=== PATIENT | female | born 1985 | race Caucasian/White ===

== ENCOUNTER 2019-02-13 08:00 | Inpatient (IN) | payer OTHER ==
[2019-02-13] MEDS ORDERED: Buffered Lidocaine 1% SYRIN* 1 ML/SYRINGE INTRADERM ONE (08:54)
[2019-02-13] MEDS ORDERED: Lactated Ringers 1000 ML Bag* 1,000 ML IV ONE (08:54)
[2019-02-13] MEDS ORDERED: Lactated Ringers 1000 ML Bag* 1,000 ML IV SCH (09:00)
[2019-02-13] MEDS: Dinoprostone* 10 MG VAG.SUPP VAGINAL ONE ×2 (09:21→09:22)
--- NOTE | 2019-02-13 09:26 | HP ---
General Information - Reason for Visit induction 39 weeks - General Information Maternal Age: 33 Grav: 1 Para: 0 SAB: 0 IEA: 0 Estimated Due Date: 02/18/19 Determined By: Early Ultrasound Maternal Blood Type and Rh: B Positive - Results this Serology/RPR Result: Non-Reactive Rubella Result: Immune HBsAg Result: Negative HIV Result: Negative GBS Culture Result: Negative Past Medical History Delivery History: See Records Pertinent Past Medical History: See Records Pertinent Past Surgical History: See Records Pertinent Family History: See Records - Antepartal Records Antepartal Records: Reviewed, Complicated by: - A2 DM/ obesity Review of Systems Constitutional: Comfortable CV Complaint: No Respiratory: Shortness of Breath: No Gastrointestinal: No Nausea/Vomiting Genitourinary: No Dysuria, No Bleeding, No Leaking Fluid Musculoskeletal: No Complaint Neurological: No Headache Movement: Normal Exam Vital Signs 02/13/19 08:15 Temperature 98.7 F Pulse Rate 82 Respiratory 20 Rate Blood Pressure 135/67 (mmHg) O2 Sat by Pulse 99 Oximetry Lab Values - Entire Visit: Laboratory Tests 02/13/19 08:57 POC Glucose (mg/dL) 81 - Measurements Height: 5 ft 6.5 in Weight: 272 lb Weight in lbs: 272.660207 Body Mass Index (BMI): 43.2 Pre- Weight: 272 lb Weight Gained This : 0 lbs and 0 ozs - Exam Breast: Breast Exam Deferred CVA: No CVA Tenderness Extremities: No Edema Heart: Normal Rhythm/Heart Sounds HEENT: No Significant Findings Lungs: Clear Bilaterally Rectal: Rectal Exam Deferred Reflexes: DTR 2+ Thyroid: No Thyromegaly - Abdominal Exam Abdomen Exam: Non-Tender - Ultrasound/Biophysical Profile Ultrasound Status: Not Done Targeted Exam Findings Cervical Exam: Fingertip Effacement: Thick Station: -3 Presenting Part: Vertex Membrane Status: Intact EFM Findings - External Monitor Findings Baseline Heart Rate: 140 External Monitor Findings: Accelerations Present, No Pattern of Variable or Late Decelerations, Variability Moderate Contractions: None Assessment/Plan - Obstetrical Risk Factors Obstetrical Risk Factors: Obesity, Gestational Diabetes - Plan Plan: Admit - Anticipate Vaginal Delivery
[2019-02-14] MEDS ORDERED: Misoprostol TAB* 100 MCG VAGINAL ONE (06:26)
[2019-02-14] MEDS ORDERED: Misoprostol TAB* 100 MCG ONE (06:29)
--- NOTE | 2019-02-14 10:33 | PN ---
Progress Note - Progress Note Date of Service: 02/14/19 Note: 33 yo at 39 weeks with gestational diabetes currently diet controlled . She was on insulin earlier in . pt being induced at term for gestational diabetes. She has had a cervidil and a misoprostol . She was closed in am yesterday . Now she is 1 cm/ 50 % / -2 station . discussed options for induction. pt would like to try pitocin since she has not responded particularly well to cervidil or cytotec.
[2019-02-14] MEDS: Oxytocin in LR* 20 UNITS/1,000 ML BAG IVPB SCH (10:50)
[2019-02-14 11:08] LABS: ABS Eosinophils 0.1 10^3/ul (0-0.6); ABS Lymphocytes 1.3 10^3/ul (1.0-4.8); ABS Monocytes 0.4 10^3/ul (0-0.8); ABS Neutrophils 6.3 10^3/ul (1.5-7.7); Eosinophil % 1.4 %; Hematocrit 36 % (35-47); Hemoglobin 12.2 g/dL (12.0-16.0); Lymphocyte % 15.3 %; Mean Corpuscular HGB Conc 34 g/dL (31-36); Mean Corpuscular Hemoglobin 31 pg (27-31); Mean Corpuscular Volume 92 fL (80-97); Mean Platelet Volume 11.2 fL (7.4-10.4); Platelet Count 179 10^3/uL (150-450); Red Cell Distribution Width 13 % (10-15); White Blood Count 8.2 10^3/uL (3.5-10.8)
[2019-02-14] MEDS ORDERED: OBEPIDURAL* 250 ML EPIDURAL ONE (12:30)
[2019-02-14] MEDS ORDERED: Bupivacaine 0.25% SDV PF* 10 ML VIAL INJ ONE (12:31)
[2019-02-14] MEDS ORDERED: Sodium Citrate/Citric Acid* 15 ML UDC PO PRN (12:54)
[2019-02-14] MEDS ORDERED: Phenylephrine 40 MCG/ML SYRINGE IV PUSH PRN (12:54)
[2019-02-14] MEDS ORDERED: Famotidine TAB* 20 MG PO PRN (12:54)
[2019-02-14] MEDS ORDERED: EPHEDrine (Pressors)* 50 MG/ML VIAL IV PUSH PRN (12:54)
[2019-02-14] MEDS ORDERED: Lactated Ringers 1000 ML Bag* 1,000 ML IV ONE (12:54)
[2019-02-14] MEDS ORDERED: Lactated Ringers 1000 ML Bag* 1,000 ML IV SCH (13:00)
[2019-02-14] MEDS ORDERED: OBEPIDURAL* 250 ML EPIDURAL SCH (13:00)
[2019-02-15] MEDS: Oxytocin in LR* 20 UNITS/1,000 ML BAG IVPB SCH (00:23)
[2019-02-15] MEDS ORDERED: Witch Hazel PAD* JAR TOPICAL PRN (00:56)
[2019-02-15] MEDS ORDERED: Glycerin ADULT SUPP PR PRN (00:56)
[2019-02-15] MEDS ORDERED: Acetaminophen TAB* 325 MG PO PRN (00:56)
[2019-02-15] MEDS ORDERED: Dibucaine 1% 28.35 GM TUBE PR PRN (00:56)
[2019-02-15] MEDS ORDERED: Lactated Ringers 1000 ML Bag* 1,000 ML IV SCH (01:00)
[2019-02-15] MEDS ORDERED: Oxytocin in LR* 20 UNITS/1,000 ML BAG IVPB SCH (01:00)
[2019-02-15] MEDS ORDERED: Lidocaine 1% INJ* 10 MG/ML 30 ML SDV ONE (02:26)
--- NOTE | 2019-02-15 06:38 | PROCNOTE ---
[facility] OB: Delivery Note - Delivery A Date of : 02/15/19 Time of : 00:12 Sex: Male Weight at : 8 lb 2 oz Score 1 Minute: 8 Score 5 Minutes: 9 Gestational Age in Weeks and Days at Delivery: 39 Weeks and 4 Days Did Patient attempt ?: N/A, No Previous Amniotic Fluid: Clear Estimated Blood Loss: 300 Anesthesia/Analgesia: CEI for Labor Delivered By: Carlos Alcaraz - Nursery Level of Nursery: Regular/Bedside - Perineum Perineal Injury: Vaginal Laceration, 2nd Degree - right sulcus tear 5 cm Perineal Injury Comment: right vaginal sulcus tear Perineal Repair: By Delivering Practioner - Events Delivery Events of Note: Pitocin During Labor, Pitocin Only After Delivery, Tocolytics Given in Past 24 Hours Delivery Events of Note Comment: pushed for 2 hrs with intermitent deep variable contractions/ pt in left and right lateral recumbent / O2/ iv fluids . good recovery
[2019-02-15] MEDS ORDERED: Simethicone TAB* 80 MG TAB.CHEW PO SCH (08:30)
[2019-02-15] MEDS: Docusate CAP* 100 MG PO SCH ×2 (11:25→14:37)
[2019-02-15] MEDS: Ibuprofen TAB* 600 MG PO PRN (14:37)
[2019-02-16] MEDS: Ibuprofen TAB* 600 MG PO PRN ×3 (03:16→19:57)
[2019-02-16] MEDS: Docusate CAP* 100 MG PO SCH ×4 (03:17→19:57)
[2019-02-16 07:10] LABS: ABS Basophils 0.1 10^3/ul (0-0.2); ABS Eosinophils 0.2 10^3/ul (0-0.6); ABS Monocytes 0.6 10^3/ul (0-0.8); ABS Neutrophils 9.6 10^3/ul (1.5-7.7); Eosinophil % 1.8 %; Hematocrit 35 % (35-47); Lymphocyte % 15.8 %; Mean Corpuscular HGB Conc 35 g/dL (31-36); Mean Corpuscular Hemoglobin 32 pg (27-31); Mean Corpuscular Volume 92 fL (80-97); Mean Platelet Volume 10.9 fL (7.4-10.4); Platelet Count 186 10^3/uL (150-450); Red Blood Count 3.77 10^6 /uL (3.70-4.87); Red Cell Distribution Width 13 % (10-15); White Blood Count 12.5 10^3/uL (3.5-10.8)
[2019-02-16] MEDS ORDERED: Ferrous Gluconate TAB* 324 MG TAB PO SCH (09:00)
[2019-02-17] MEDS: Ibuprofen TAB* 600 MG PO PRN (10:35)
[2019-02-17] MEDS: Docusate CAP* 100 MG PO SCH (10:35)
[2019-02-17 11:00] VITALS: BP 132/62
== END 2019-02-17 14:00 | disposition home or self-care (01) | DRG 807 ==
LOC: MCHOBOUT 08:00 → MCHOB 08:53
PROVIDERS: ADMIT Obstetrics & Gynecology; ATTEND Obstetrics & Gynecology
PROC: 10E0XZZ Delivery of Products of Conception, External Approach (ICD-10-PCS; principal; 2019-02-15)
PROC: 0KQM0ZZ Repair Perineum Muscle, Open Approach (ICD-10-PCS; 2019-02-15)
PROC: 3E0P7VZ Introduction of Hormone into Female Reproductive, Via Natural or Artificial Opening (ICD-10-PCS; 2019-02-15)
PROC: 4A1HXCZ Monitoring of Products of Conception, Cardiac Rate, External Approach (ICD-10-PCS; 2019-02-15)
PROC: 3E033VJ Introduction of Other Hormone into Peripheral Vein, Percutaneous Approach (ICD-10-PCS; 2019-02-15)
PROC: 0UQGXZZ Repair Vagina, External Approach (ICD-10-PCS; 2019-02-15)
DX: O24.420 Gestational diabetes mellitus in childbirth, diet controlled (principal); Z37.0 Single live birth; O70.1 Second degree perineal laceration during delivery; O99.214 Obesity complicating childbirth; Z3A.39 39 weeks gestation of pregnancy; O69.82X0 Labor and delivery complicated by other cord entanglement, without compression, not applicable or unspecified
CPT/HCPCS: 36415; 85025; 86850; 86900; 86901; A9270-GY; J3490; S0191

== ENCOUNTER 2019-06-27 14:44 | Emergency (ER) | payer OTHER ==
--- OUTSIDE RECORDS SUMMARY | 2019-06-27 15:12 | XMS REPORT | Summary of Care ---
:1985 Author Organization [facility] Address [address] [place] [address] Care Team Providers Name Role Phone Bernice Locketth Primary Care Provider Reason for Visit Reason Comments Urinary Frequency w/ burning for 5 days. back pain and nausea on thursday. also states vomited today Encounter Details Date Type Department Care Team Description 06/27/2019 Office Visit [facility] Dexter Dewittia, Dysuria (Primary Dx) [address] [place] [address] [phone] [place] [address] [phone] Allergies No Known Allergiesdocumented as of this encounter (statuses as of 06/27/2019) Medications Medication Sig Dispensed Refills Start Date End Date Status OMEPRAZOLE PO Take by mouth 0 Active DAILY. metFORMIN TAKE 1 TABLET 60 Tab 2 12/21/2017 06/27/2019 Discontinued (GLUCOPHAGE) 500 BY MOUTH TWICE MG Oral DAILY TabIndications: PCOS (polycystic ovarian syndrome) documented as of this encounter (statuses as of 06/27/2019) Active Problems Problem Noted Date PCOS (polycystic ovarian syndrome) 09/04/2014 documented as of this encounter (statuses as of 06/27/2019) Social History Tobacco Use Types Packs/Day Years Used Date Never Smoker Smokeless Tobacco: Never Used Alcohol Use Drinks/Week oz/Week Comments No Sex Assigned at Date Recorded Not on file Job Start Date Occupation Industry Not on file Not on file Not on file Travel History Travel Start Travel End No recent travel history available. documented as of this encounter Last Filed Vital Signs Vital Sign Reading Time Taken Comments Blood Pressure 132/78 06/27/2019 2:06 PM EST Pulse 103 06/27/2019 2:06 PM EST Temperature 38.1 06/27/2019 2:06 PM C (100.6 EST F) Respiratory Rate - - Oxygen Saturation 98% 06/27/2019 2:06 PM EST Inhaled Oxygen Concentration - - Weight 114.3 kg (252 lb) 06/27/2019 2:06 PM EST Height 166.4 cm (5' 5.5") 06/27/2019 2:06 PM EST Body Mass Index 41.3 06/27/2019 2:06 PM EST documented in this encounter Patient Instructions Patient InstructionsDoLida umanzor PA-C - 06/27/2019 2:00 PM ESTDiscussed with patient, suspect hydronephrosis Recommended going to ER for evaluation and treatment -- patient said she is able to drive herself over to [facility] Will send urine for culture, will call with results SHOT PACKER called [facility] Charge nurse Call if not improvingElectronically signed by Lida Dewitt PA-C at 2018 2:24 PM EST documented in this encounter Progress Notes Lida Dewitt PA-C - 06/27/2019 2:00 PM EST PATIENT: Michelle Gaines : 1985 DATE OF SERVICE: 06/27/2019 REFERRING PRACTITIONER: Gavin PRIMARY CARE PROVIDER: Sharona Lockett CHIEF COMPLAINT: Chief Complaint Patient presents with Urinary Frequency w/ burning for 5 days. back pain and nausea on thursday. also states vomited today Subjective HISTORY OF PRESENT ILLNESS: Michelle Gaines is a 33-y.o. female who presents with urinary frequency and burning, bilateral flankpain, nausea, x 5 days Vomited this morning Ate only 1 portion of oatmeal today, took tylenol Denies new soaps, detergents, hot tubs, baths LMP: 3 weeks ago No history of kidney stones Denies fever, chills, diarrhea, chest pains, SOB No past medical history on file. No past surgical history on file. Family History Problem Relation Age of Onset Diabetes Mother Current Outpatient Medications Medication Sig OMEPRAZOLE PO Take by mouth DAILY. No current facility-administered medications for this visit. No Known Allergies Social History Socioeconomic History Marital status: Unknown Spouse name: Not on file Number of children: Not on file Years of education: Not on file Highest education level: Not on file Occupational History Not on file Social Needs Financial resource strain: Not on file Food insecurity: Worry: Not on file Inability: Not on file Transportation needs: Medical: Not on file Non-medical: Not on file Tobacco Use Smoking status: Never Smoker Smokeless tobacco: Never Used Substance and Sexual Activity Alcohol use: No Drug use: No Sexual activity: Yes Partners: Male Lifestyle Physical activity: Days per week: Not on file Minutes per session: Not on file Stress: Not on file Relationships Social connections: Talks on phone: Not on file Gets together: Not on file Attends restorationism service: Not on file Active member of club or organization: Not on file Attends meetings of clubs or organizations: Not on file Relationship status: Not on file Intimate partner violence: Fear of current or ex partner: Not on file Emotionally abused: Not on file Physically abused: Not on file Forced sexual activity: Not on file Other Topics Concern Back Care Not Asked Bike Helmet Not Asked Blood Transfusions Not Asked Caffeine Concern Not Asked Exercise Not Asked Hobby Hazards Not Asked International Travel Not Asked Service Not Asked Occupational Exposure Not Asked Seat Belt Not Asked Self-Exams Not Asked Sleep Concern Not Asked Special Diet Not Asked Stress Concern Not Asked Weight Concern Not Asked Social History Narrative Not on file REVIEW OF SYSTEMS: Skin: negative skin lesions Eyes: negative visual blurring Ears/Nose/Throat: negative rhinorrhea or sore throat Respiratory: negative cough Cardiovascular: negative chest pain Gastrointestinal: negative abdominal pain, constipation, diarrhea. Positive nausea, vomiting Genitourinary: positive burning on urination, dysuria, flank pain Musculoskeletal: negative arthritis/joint pain Neurologic: negative numbness or tingling of feet or hands Psychiatric: negative anxiety Hematologic/Lymphatic/Immunologic: negative allergies Endocrine: positive PCOD Objective PHYSICAL EXAMINATION: VITALS: BP 132/78 (BP Location: Right arm, Patient Position: Sitting) | Pulse 103 | Temp 100.6 F (38.1 C) | Ht 5' 5.5" (1.664 m) | Wt 252 lb ( 114.3 kg) | SpO2 98% | BMI 41.30 kg/m Body mass index is 41.3 kg/m. General appearance: alert, moderate distress, cooperative, oriented times 3, morbidly obese Skin: Skin color, texture, turgor normal. No rashes or lesions. Head: Normocephalic. No masses, lesions, tenderness or abnormalities Eyes: conjunctivae/corneas clear. PERRL, EOM's intact. Neck: Neck supple, FROM. No cervical or supraclavicular adenopathy. Lungs: Good diaphragmatic excursion. Lungs clear. Chest symmetrical. Normal breath sounds. Heart: RRR. No murmurs, clicks or gallops. No peripheral edema. Abdomen: Abdomen soft. Mild tenderness over bladder. Bilateral flank painBS normal. No masses, organomegaly or hernia URINE DIP MANUAL (AMB POCT) Order: [id number] Status: Final result Visible to patient: No (Not Released) Dx: Dysuria Ref Range & Units 2:10 PM URINE GLUCOSE (POCT) Negative mg/dl Negative URINE BILIRUBIN (POCT) Negative SmallAbnormal Urine Ketones (POCT) Negative TraceAbnormal URINE SPECIFIC GRAVITY (POCT) 1.005 - 1.030 1.030 URINE BLOOD (POCT) Negative LargeAbnormal URINE PH (POCT) 5.0 - 8.0 6.0 URINE PROTEIN (POCT) Negative mg/dl 300 Abnormal URINE UROBILINOGEN (POCT) 0.2 - 1.0 mg/dl 0.2 URINE NITRITES (POCT) Negative Negative URINE LEUKOCYTES (POCT) Negative Cells/uL ModerateAbnormal Resulting Agency [facility] Specimen Collected: 06/27/19 2:10 PM Last Resulted: 06/27/19 . IMPRESSION: ICD-9-CM ICD-10-CM 1. Dysuria 788.1 R30.0 Plan PLAN: Discussed with patient, suspect hydronephrosis Recommended going to ER for evaluation and treatment -- patient said she is able to drive herself over to [facility] Will send urine for culture, will call with results SHOT PACKER called [facility] ER Charge nurse Call if not improving Author: Lida Dewitt PA-C 06/27/2019 14:10 documented in this encounter Plan of Treatment Name Type Priority Associated Diagnoses Order Schedule URINE CULTURE (C&S) Lab Routine Dysuria 1 Occurrences starting 06/27/2019 until 12/24/2019 Health Maintenance Due Date Last Done Comments DEPRESSION SCREENING 1997 INFLUENZA VACCINE (#1) 2019 PAP SMEAR 10/12/2020 10/12/2017, 09/04/2014 HPV IMMUNIZATION SERIES Aged Out No longer eligible based on patient's age to complete this topic MENINGOCOCCAL VACCINE IMM Aged Out No longer eligible based on patient's age to complete this topic PNEUMOCOCCAL 0-64 YRS Aged Out No longer eligible based on patient's age to complete this topic documented as of this encounter Procedures Procedure Name Priority Date/Time Associated Diagnosis Comments URINE DIP MANUAL Routine 06/27/2019 2:10 PM Dysuria Results for this (AMB POCT) EST procedure are in the results section. documented in this encounter Results URINE DIP MANUAL (AMB POCT) (06/27/2019 2:10 PM EST) URINE GLUCOSE (POCT) Negative Negative mg/dl [facility] POCT URINE BILIRUBIN Small (A) Negative [facility] (POCT) POCT Urine Ketones (POCT) Trace (A) Negative [facility] POCT URINE SPECIFIC 1.030 1.005 - 1.030 [facility] GRAVITY (POCT) POCT URINE BLOOD (POCT) Large (A) Negative [facility] POCT URINE PH (POCT) 6.0 5.0 - 8.0 [facility] POCT URINE PROTEIN (POCT) 300 (A) Negative mg/dl [facility] POCT URINE UROBILINOGEN 0.2 0.2 - 1.0 mg/dl [facility] (POCT) POCT URINE NITRITES Negative Negative [facility] (POCT) POCT URINE LEUKOCYTES Moderate (A) Negative [facility] (POCT) Cells/uL POCT Specimen Urine - Urine specimen (specimen) Performing Organization Address City/State/Zipcode Phone Number [facility] [address] [place] [address] documented in this encounter Visit Diagnoses Diagnosis Dysuria - Primary documented in this encounter Insurance Payer Benefit Plan / Subscriber ID Effective Dates Phone Address Type Group [employer] COMMERCIAL AETNA [facility] xxxxxxxxxx 2015-Present [employer] Guarantor Name Account Type Relation to Date of Phone Billing Patient Address Michelle Gaines Personal/Family 1985 [address] [place], [place] (Work) [address] documented as of this encounter
[2019-06-27 17:11] LABS: ABS Basophils 0.1 10^3/ul (0-0.2); ABS Lymphocytes 0.7 10^3/ul (1.0-4.8); ABS Monocytes 0.7 10^3/ul (0-0.8); ABS Neutrophils 9.3 10^3/ul (1.5-7.7); Hematocrit 36 % (35-47); Hemoglobin 12.3 g/dL (12.0-16.0); Lymphocyte % 6.2 %; Mean Corpuscular HGB Conc 35 g/dL (31-36); Mean Corpuscular Hemoglobin 31 pg (27-31); Mean Corpuscular Volume 90 fL (80-97); Mean Platelet Volume 10.1 fL (7.4-10.4); Platelet Count 201 10^3/uL (150-450); Red Blood Count 3.96 10^6 /uL (3.70-4.87); Red Cell Distribution Width 13 % (10-15); White Blood Count 10.7 10^3/uL (3.5-10.8)
[2019-06-27 17:23] LABS: Urine Appearance Turbid; Urine Bacteria 1+ (Absent); Urine Bilirubin Negative (Negative); Urine Blood 2+ (Negative); Urine Color Amber; Urine Glucose Negative (Negative); Urine Ketones 1+ (Negative); Urine Nitrite Negative (Negative); Urine Protein 2+(100 mg/dL) (Negative); Urine Red Blood Cell 1+(3-5/hpf) (Absent); Urine Specific Gravity 1.021 (1.010-1.030); Urine Urobilinogen Negative (Negative); Urine White Blood Cell 3+(>20/hpf) (Absent)
[2019-06-27 17:34] LABS: HCG Pregnancy < 0.60 mIU/mL
[2019-06-27 17:47] LABS: ALT 17 U/L (7-52); AST 12 U/L (13-39); Albumin/Globulin Ratio 1.1 (1-3); Alkaline Phosphatase 44 U/L (34-104); Anion Gap 10 mmol/L (2-11); Blood Urea Nitrogen 12 mg/dL (6-24); C Reactive Protein 195.97 mg/L (<8.01); CO2 Carbon Dioxide 23 mmol/L (22-32); Calcium 9.4 mg/dL (8.6-10.3); Chloride 101 mmol/L (101-111); Globulin 3.6 g/dL (2-4); Glucose 103 mg/dL (70-100); Potassium 3.7 mmol/L (3.5-5.0); Sodium 134 mmol/L (135-145); Total Protein 7.6 g/dL (6.4-8.9)
[2019-06-27] MEDS ORDERED: Sulfamethox/Trimethoprim DS 800/160* TAB PO ONE (19:06)
--- NOTE | 2019-06-27 19:07 | ED ---
GI/ HPI - HPI Summary HPI Summary: Patient complains of increased urinary frequency, burning with urination, bilateral lower back pain 2 days, and one episode of vomiting today. Patient went to PCP was sent to the ED to rule out possible pyelonephritis. Patient states temperature was 100 at PCP. Took Tylenol this a.m. Denies cough, sore throat, CP, SOB, diarrhea, abdominal pain, vaginal symptoms. Medical history is PCOS. No history of kidney stones or UTI. - History of Current Complaint Chief Complaint: EDUrogenitalProblems Time Seen by Provider: 06/27/19 15:57 Stated Complaint: KIDNEY STONES PER PT Hx Obtained From: Patient Onset/Duration: Started Days Ago Timing: Intermittent Severity: Moderate Current Severity: Moderate Pain Intensity: 7 Location of Pain: None Pain Characteristics: Burning Associated Signs and Symptoms: Positive: Back Pain, Nausea, Vomiting, Dysuria - Allergy/Home Medications Allergies/Adverse Reactions: Allergies Allergy/AdvReac Type Severity Reaction Status Date / Time No Known Allergies Allergy Verified 06/27/19 14:49 PMH/Surg Hx/FS Hx/Imm Hx Endocrine/Hematology History: Denies: Hx Anticoagulant Therapy Cardiovascular History: Denies: Hx Pacemaker/ICD History: Denies: Hx Dialysis Sensory History: Denies: Hx Eye Prosthesis Opthamlomology History: Denies: Hx Legally Blind EENT History: Denies: Hx Deafness Neurological History: Denies: Hx CVA - Immunization History Immunizations Up to Date: Yes Infectious Disease History: No Infectious Disease History: Denies: Traveled Outside the [place] in Last 30 Days - Family History Known Family History: Positive: Non-Contributory - Social History Alcohol Use: None Substance Use Type: Reports: None Smoking Status (MU): Never Smoked Tobacco Review of Systems Constitutional: Negative Eyes: Negative ENT: Negative Cardiovascular: Negative Respiratory: Negative Gastrointestinal: Negative Positive: burning, frequency, urgency Musculoskeletal: Negative Skin: Negative Neurological: Negative Psychological: Normal All Other Systems Reviewed And Are Negative: Yes Physical Exam Triage Information Reviewed: Yes Vital Signs On Initial Exam: Initial Vitals Temp Pulse Resp BP Pulse Ox 97.9 F 106 14 148/80 100 06/27/19 14:46 06/27/19 14:46 06/27/19 14:46 06/27/19 14:46 06/27/19 14:46 Vital Signs Reviewed: Yes Appearance: Positive: Well-Appearing Skin: Positive: Warm Head/Face: Positive: Normal Head/Face Inspection Eyes: Positive: Normal Neck: Positive: Supple Respiratory/Lung Sounds: Positive: Clear to Auscultation Cardiovascular: Positive: Normal Abdomen Description: Positive: Nontender, CVA Tenderness (R), CVA Tenderness (L) Musculoskeletal: Positive: Normal Neurological: Positive: Normal Psychiatric: Positive: Normal AVPU Assessment: Alert - Lincoln Coma Scale Best Eye Response: 4 - Spontaneous Best Motor Response: 6 - Obeys Commands Best Verbal Response: 5 - Oriented Coma Scale Total: 15 Procedures - Sedation Patient Received Moderate/Deep Sedation with Procedure: No Diagnostics - Vital Signs Vital Signs Temp Pulse Resp BP Pulse Ox 06/27/19 14:46 97.9 F 106 14 148/80 100 - Laboratory Lab Results: Lab Results 06/27/19 06/27/19 06/27/19 Range/Units 17:01 17:01 17:01 WBC 10.7 (3.5-10.8) 10^3/uL RBC 3.96 (3.70-4.87) 10^6 /uL Hgb 12.3 (12.0-16.0) g/dL Hct 36 (35-47) % MCV 90 (80-97) fL MCH 31 (27-31) pg MCHC 35 (31-36) g/dL RDW 13 (10-15) % Plt Count 201 (150-450) 10^3/uL MPV 10.1 (7.4-10.4) fL Neut % (Auto) 86.7 % Lymph % (Auto) 6.2 % Wallace % (Auto) 6.5 % Eos % (Auto) 0.0 % Baso % (Auto) 0.6 % Absolute Neuts (auto) 9.3 H (1.5-7.7) 10^3/ul Absolute Lymphs (auto) 0.7 L (1.0-4.8) 10^3/ul Absolute Monos (auto) 0.7 (0-0.8) 10^3/ul Absolute Eos (auto) 0.0 (0-0.6) 10^3/ul Absolute Basos (auto) 0.1 (0-0.2) 10^3/ul Absolute Nucleated RBC 0.0 10^3/ul Nucleated RBC % 0.0 Sodium 134 L (135-145) mmol/L Potassium 3.7 (3.5-5.0) mmol/L Chloride 101 (101-111) mmol/L Carbon Dioxide 23 (22-32) mmol/L Anion Gap 10 (2-11) mmol/L BUN 12 (6-24) mg/dL Creatinine 0.86 (0.51-0.95) mg/dL Est GFR ( Amer) 92.0 (>60) Est GFR (Non-Af Amer) 76.0 (>60) BUN/Creatinine Ratio 14.0 (8-20) Glucose 103 H (70-100) mg/dL Lactic Acid 0.6 (0.5-2.0) mmol/L Calcium 9.4 (8.6-10.3) mg/dL Total Bilirubin 1.00 (0.2-1.0) mg/dL AST 12 L (13-39) U/L ALT 17 (7-52) U/L Alkaline Phosphatase 44 (34-104) U/L C-Reactive Protein 195.97 H (<8.01) mg/L Total Protein 7.6 (6.4-8.9) g/dL Albumin 4.0 (3.2-5.2) g/dL Globulin 3.6 (2-4) g/dL Albumin/Globulin Ratio 1.1 (1-3) Lipase 16 (11.0-82.0) U/L Beta HCG, Quant < 0.60 mIU/mL Urine Color Urine Appearance Urine pH (5-9) Ur Specific [place] (1.010-1.030) Urine Protein (Negative) Urine Ketones (Negative) Urine Blood (Negative) Urine Nitrate (Negative) Urine Bilirubin (Negative) Urine Urobilinogen (Negative) Ur Leukocyte Esterase (Negative) Urine WBC (Auto) (Absent) Urine RBC (Auto) (Absent) Urine Bacteria (Absent) Urine Glucose (Negative) 06/27/19 Range/Units 17:11 WBC (3.5-10.8) 10^3/uL RBC (3.70-4.87) 10^6 /uL Hgb (12.0-16.0) g/dL Hct (35-47) % MCV (80-97) fL MCH (27-31) pg MCHC (31-36) g/dL RDW (10-15) % Plt Count (150-450) 10^3/uL MPV (7.4-10.4) fL Neut % (Auto) % Lymph % (Auto) % Wallace % (Auto) % Eos % (Auto) % Baso % (Auto) % Absolute Neuts (auto) (1.5-7.7) 10^3/ul Absolute Lymphs (auto) (1.0-4.8) 10^3/ul Absolute Monos (auto) (0-0.8) 10^3/ul Absolute Eos (auto) (0-0.6) 10^3/ul Absolute Basos (auto) (0-0.2) 10^3/ul Absolute Nucleated RBC 10^3/ul Nucleated RBC % Sodium (135-145) mmol/L Potassium (3.5-5.0) mmol/L Chloride (101-111) mmol/L Carbon Dioxide (22-32) mmol/L Anion Gap (2-11) mmol/L BUN (6-24) mg/dL Creatinine (0.51-0.95) mg/dL Est GFR ( Amer) (>60) Est GFR (Non-Af Amer) (>60) BUN/Creatinine Ratio (8-20) Glucose (70-100) mg/dL Lactic Acid (0.5-2.0) mmol/L Calcium (8.6-10.3) mg/dL Total Bilirubin (0.2-1.0) mg/dL AST (13-39) U/L ALT (7-52) U/L Alkaline Phosphatase (34-104) U/L C-Reactive Protein (<8.01) mg/L Total Protein (6.4-8.9) g/dL Albumin (3.2-5.2) g/dL Globulin (2-4) g/dL Albumin/Globulin Ratio (1-3) Lipase (11.0-82.0) U/L Beta HCG, Quant mIU/mL Urine Color Grace Urine Appearance Turbid Urine pH 5.0 (5-9) Ur Specific [place] 1.021 (1.010-1.030) Urine Protein 2+(100 mg/dl) A (Negative) Urine Ketones 1+ A (Negative) Urine Blood 2+ A (Negative) Urine Nitrate Negative (Negative) Urine Bilirubin Negative (Negative) Urine Urobilinogen Negative (Negative) Ur Leukocyte Esterase 3+ A (Negative) Urine WBC (Auto) 3+(>20/hpf) A (Absent) Urine RBC (Auto) 1+(3-5/hpf) A (Absent) Urine Bacteria 1+ A (Absent) Urine Glucose Negative (Negative) Result Diagrams: 06/27/19 17:01 06/27/19 17:01 Lab Statement: Any lab studies that have been ordered have been reviewed, and results considered in the medical decision making process. GIGU Course/Dx - Course Course Of Treatment: Patient complains of increased urinary frequency, burning with urination, bilateral lower back pain 2 days, and one episode of vomiting today. Patient went to PCP was sent to the ED to rule out possible pyelonephritis. Patient states temperature was 100 at PCP. Took Tylenol this a.m. Denies cough, sore throat, CP, SOB, diarrhea, abdominal pain, vaginal symptoms. Medical history is PCOS. No history of kidney stones or UTI. Vital signs within normal limits. CRP 195. WBC normal. Labs unremarkable. Ultrasound renal positive for moderate left hydronephrosis. UA positive for UTI. Rx for Bactrim. - Diagnoses Provider Diagnoses: UTI (urinary tract infection) Discharge ED - Sign-Out/Discharge Documenting (check all that apply): Patient Departure - Discharge Plan Condition: Stable Disposition: HOME Prescriptions: Sulfamethox/Trimethoprim DS* [Bactrim DS 800/160 TAB*] 1 tab PO BID 14 Days #28 tab Patient Education Materials: Urinary Tract Infection in Women (ED) Forms: *Gen. Provider Communication Referrals: Sharona Lockett MD [Primary Care Provider] - Additional Instructions: Take antibiotics as directed. Drink plenty of fluids. Follow-up with primary care. Return to the ED for any new or worsening symptoms. - Billing Disposition and Condition Condition: STABLE Disposition: Home
[2019-06-27 19:37] VITALS: BP 125/75
--- NOTE | 2019-06-30 06:17 | ED ---
Imaging and Labs Follow Up Follow Up Type: Labs/Cultures Labs/Culture Result: Urine culture preliminary shows greater than 100,000 Escherichia coli. Patient was treated with Bactrim. There is no sensitivity report back at this time but is assumed that Bactrim we'll provide adequate coverage for this bacteria. Patient was treated appropriately. Patient Communication/Plan: Patient treated appropriately with Bactrim. Nothing further at this time. Provider Diagnoses: UTI (urinary tract infection)
== END 2019-06-27 19:36 | disposition home or self-care (01) ==
LOC: ED 14:44
DX: N39.0 Urinary tract infection, site not specified (principal); N13.2 Hydronephrosis with renal and ureteral calculous obstruction; M54.5 Low back pain; R11.2 Nausea with vomiting, unspecified
CPT/HCPCS: 36415; 76775; 80053; 81003; 81015; 83605; 83690; 84702; 85025; 86140; 87077; 87086; 87186; 99282; A9270-GY